=== PATIENT | female | born 1975 | race Two or more races ===

== ENCOUNTER → 2018-05-15 | Outpatient (CLI) | payer OTHER ==
[2018-05-17 09:35] LABS: Hepatitis B Surface Antibody Negative
[2018-05-17 13:36] LABS: Hepatitis B Surface Antigen Negative (Negative)
== END | disposition home or self-care (01) ==
LOC: LAB 16:17
PROVIDERS: ATTEND Registered Nurse General Practice
DX: Z57.8 Occupational exposure to other risk factors (principal); Y99.9 Unspecified external cause status
CPT/HCPCS: 36415; 86703; 86706; 86803; 87340